=== PATIENT | male | born 1950 | race Caucasian/White ===

== ENCOUNTER → 2022-04-09 | Outpatient (CLI) | payer MEDICARE ==
[2022-04-09 09:37] LABS: Appearance,Urine Clear (Clear); Bilirubin,Urine Negative (Negative); Blood,Urine Negative (Negative); Color,Urine Yellow; Glucose,Urine (UA) Negative (Negative); Ketones,Urine Negative (Negative); Leukocyte Esterase,Urine Negative (Negative); Nitrite,Urine Negative (Negative); PH, Urine 6.5 (5.0-8.0); Protein,Urine Negative (Negative); Specific Gravity,Urine 1.023 (1.001-1.035); Urobilinogen,Urine <2.0 mg/dL (<2.0)
[2022-04-09 10:39] LABS: INR 1.2 (<1.2); Partial Thromboplastin Time 29.5 sec (22.0-30.0); Prothrombin Time 12.1 sec (9.0-12.0)
== END | disposition home or self-care (01) ==
LOC: LABPAT 08:14
PROVIDERS: ATTEND Orthopaedic Surgery
DX: Z01.812 Encounter for preprocedural laboratory examination (principal)
CPT/HCPCS: 80053; 81003; 85025; 85610; 85730; 87070; 93005

== ENCOUNTER → 2022-04-17 | Outpatient (CLI) | payer MEDICARE ==
[2022-04-17 19:09] LABS: HCT 41.6 % (39.6-50.0); HGB 13.7 g/dL (13.0-17.0); MCHC 32.9 g/dL (32.0-37.0); MCV 94.1 fL (80.0-97.0); Mean Platelet Volume 11.1 fL (9.5-12.2); NRBC Per 100 WBC 0 /100 WBCS (0.0-0.0); Platelet Count 167 X 10*3/uL (140-440); RBC 4.42 X 10*6/uL (4.40-5.60); RDW 12.8 % (11.5-14.5); WBC 7.59 X 10*3/uL (4.50-10.00)
[2022-04-17 19:50] LABS: African American GFR (CKD) 86.5 (60.0-200.0); Albumin 4.9 g/dL (3.8-4.9); Albumin/Globulin Ratio 1.75 (1.60-3.17); Anion Gap 12.2 mmol/L (10.00-18.00); BUN/Creat Ratio 25.78 Ratio (12.00-20.00); Blood Urea Nitrogen 26.3 mg/dL (9.0-27.0); Calcium 9.9 mg/dL (8.7-10.3); Carbon Dioxide 24.1 mmol/L (20.0-27.5); Globulin 2.8 g/dL (1.6-3.3); Non-African American GFR(CKD) 74.6 (60.0-200.0); Potassium 4.6 mmol/L (3.5-5.5); Total Bilirubin 0.7 mg/dL (0.30-1.20); Total Protein 7.6 g/dL (6.2-8.2)
== END | disposition home or self-care (01) ==
LOC: LABWHC1 12:02
PROVIDERS: ATTEND Orthopaedic Surgery
DX: Z01.812 Encounter for preprocedural laboratory examination (principal)
CPT/HCPCS: 36415; 80053; 85027

== ENCOUNTER 2022-04-22 06:08 | Day surgery (SDC) | payer MEDICARE ==
[~2022-04-22 06:08] MED LIST: ACETAMINOPHEN TAB 500 MG TAB PO PRN; DEXAMETHASONE SOD PHOSPHATE 10 MG/ML 1 ML VIAL IV PRN; DOCUSATE 100 MG CAP PO PRN; FAMOTIDINE 20 MG/2 ML VIAL IVP PRN; KETOROLAC 15 MG/ML 1 ML VIAL IVP PRN; ONDANSETRON 4 MG/2 ML VIAL IVP PRN; ROPIVACAINE/EPI/CLONIDINE/KET 50 ML SYRINGE MISCELLANE PRN; TRANEXAMIC ACID IN NACL,ISO-OS 1,000 MG in SALINE 1 100ML.BAG IVPB PRN; oxyCODONE ER 10 MG TAB.ER.12H PO PRN
[2022-04-22] MEDS ORDERED: MIDAZOLAM 2 MG/2 ML VIAL IV PRN (06:38)
[2022-04-22] MEDS ORDERED: LIDOCAINE 1% (10MG/ML) FOR IV START INTRADERMA PRN (06:38)
[2022-04-22] MEDS ORDERED: DEXAMETHASONE SOD PHOSPHATE 4 MG/ML 1 ML VIAL IV ONE (06:38)
[2022-04-22] MEDS ORDERED: ONDANSETRON 4 MG/2 ML VIAL IVP ONE (06:38)
[2022-04-22] MEDS ORDERED: fentaNYL (PF) 50 MCG/ML 2 ML AMP IVP PRN (07:00)
[2022-04-22] MEDS ORDERED: HYDROmorphone 0.5 MG/0.5 ML SYRINGE IVP PRN ×4 (07:00→11:04)
[2022-04-22] MEDS: LACTATED RINGERS 1,000 ML IV SCH ×3 (07:04→16:06)
[2022-04-22 07:07] LABS: Glucose,Whole Blood 132 mg/dL (70-110)
[2022-04-22] MEDS ORDERED: fentaNYL (PF) 50 MCG/1 ML VIAL IVP ONE (07:39)
[2022-04-22] MEDS ORDERED: MIDAZOLAM 2 MG/2 ML VIAL IVP ONE (07:39)
[2022-04-22] MEDS ORDERED: PHENYLEPHRINE-0.9% NACL SYG 1,000 MCG/10 ML SYRINGE ONE (07:55)
[2022-04-22] MEDS ORDERED: GLYCOPYRROLATE 0.2 MG/ML 2 ML VIAL ONE (07:55)
[2022-04-22] MEDS ORDERED: SUCCINYLCHOLINE CHLORIDE 200 MG/10 ML VIAL IV ONE (07:55)
[2022-04-22] MEDS ORDERED: SODIUM CHLORIDE 0.9% (PF) 10 ML VIAL ONE (07:55)
[2022-04-22] MEDS ORDERED: LIDOCAINE 2% INJ 20 MG/ML (2 ML VIAL) ONE (07:55)
[2022-04-22] MEDS ORDERED: fentaNYL (PF) 50 MCG/ML 2 ML AMP ONE (07:55)
[2022-04-22] MEDS ORDERED: PROPOFOL 10 MG/ML 20 ML VIAL IV ONE (07:55)
[2022-04-22] MEDS ORDERED: ROCURONIUM 10 MG/ML (5 ML VIAL) IV ONE (07:55)
[2022-04-22] MEDS ORDERED: TRANEXAMIC ACID IN NACL,ISO-OS 1,000 MG/100 ML BAG ONE (07:55)
[2022-04-22] MEDS ORDERED: MIDAZOLAM 2 MG/2 ML VIAL ONE (07:55)
[2022-04-22] MEDS ORDERED: NEOSTIGMINE 1 MG/ML 10 ML VIAL ONE (07:55)
[2022-04-22] MEDS ORDERED: ROPIVACAINE 5 MG/ML 30 ML VIAL ONE (07:55)
[2022-04-22] MEDS ORDERED: LACTATED RINGERS 1,000 ML IV ONE (10:25)
[2022-04-22] MEDS ORDERED: ONDANSETRON 4 MG/2 ML VIAL IVP PRN (11:04)
[2022-04-22] MEDS ORDERED: hydrOXYzine pamoate 25 MG CAP PO PRN (11:04)
[2022-04-22] MEDS ORDERED: HYDROcodone/APAP 5-325MG 1 EACH TAB PO PRN (11:04)
[2022-04-22] MEDS ORDERED: NALOXONE 0.4 MG/ML 1 ML VIAL IV PRN (11:04)
--- NOTE | 2022-04-22 11:12 | XR ---
Fluoroscopy INDICATION: Pain FINDINGS: Fluoroscopy time: 54 seconds. Images obtained: 8. IMPRESSIONS: 1. Documentation of fluoroscopy.
--- NOTE | 2022-04-22 11:13 | FL ---
Fluoroscopy INDICATION: Pain FINDINGS: Fluoroscopy time: 54 seconds. Images obtained: 0. IMPRESSIONS: 1. Documentation of fluoroscopy.
[2022-04-22] MEDS ORDERED: RIVAROXABAN 20 MG TAB PO STA (11:19)
--- NOTE | 2022-04-22 11:23 | P.OP ---
Date of Procedure: 04/22/22 Preoperative Diagnosis: 1. Severe right hip osteoarthritis 2. Atrial fibrillation on Eliquis 3. Type 2 diabetes Postoperative Diagnosis: Same Procedure(s) Performed: Right direct anterior total hip arthroplasty Implants: 1. [place] Trident II Acetabular Cup, Size #58 2. [place] Accolade C Size # 5 Femoral Stem, High Offset 3. Biolox delta femoral head, 36 mm, +5 mm neck Anesthesia: LILIA, regional Surgeon: Rashid Valdez Securities Settlement Processor #1: Sabrina Garcia Estimated Blood Loss (ml): 150 IV fluids (ml): 1,200 Pathology: none sent Condition: stable Disposition: PACU Indications for Procedure: I had a long discussion with the patient in the office on the potential risks and complications of an elective total hip replacement through a direct anterior approach. Risks discussed include, but are certainly not limited to, risks from anesthesia, superficial infection requiring local wound care or antibiotics, deep saul-prosthetic joint infection and the treatment required to eradicate infection, intraoperative fracture, postoperative periprosthetic fracture, damage to local blood vessels or nerves particularly the lateral femoral cutaneous nerve, delayed wound healing requiring local wound care or possibly surgical debridement, hip dislocation, leg length discrepancy, soft tissue irritation around the total hip implant such as iliopsoas tendinitis or trochanteric bursitis, wear and osteolysis from the implants, squeaking or audible noises, groin pain, thigh pain, heterotopic ossification, stiffness, aseptic loosening of the implants, dissatisfaction with surgical outcome, need for revision surgery, DVT, PE, swelling of the operative extremity, acute coronary event, stroke, failure to thrive, and possibly loss of life or limb. The patient understands that while these are the most common complications after an elective hip replacement there are certainly other less common complications possible. They were given ample time to ask questions regarding the potential complications of a hip replacement. Following our discussion the patient provided their verbal and written consent to go forward with an elective total hip replacement. Operative Findings: The patient had relatively poor bone quality and the proximal femur. I initially attempted using a cementless broach system for a cementless stem but due to the patient's relatively poor bone quality I could not achieve stability so elected to use a cemented femoral stem Description of Procedure: The patient was identified in the preoperative holding area and the correct hip was marked with my initials. I reviewed the procedure and consent with the patient. All of their questions were answered. The patient was then brought back into the operating room by anesthesia. While on the [facility] anesthesia was administered by the anesthesia team. Preoperative antibiotics and tranexamic acid were also given. After the patient was under anesthesia I examined their ankles to determine their preoperative leg length discrepancy. The skin over the anterior aspect of the hip was shaved to remove hair over the site of planned incision. Both feet and ankles were padded with webril and boots for the [place] were applied. The patient was then carefully transferred onto the [place] table. A perineal post was immediately placed. The arms were placed on arm holders and were well-padded. Both boots were secured to the spars on the [place] table. The patient was positioned so that the pelvis was centered over the post. Nonsterile drapes were applied. A timeout was performed identifying the correct patient, operative extremity, and procedure. At this point fluoroscopy was brought in to take preoperative images of the pelvis and operative hip. Using the standing AP pelvis from the office as a template, a comparable image was obtained with fluoroscopy. A metallic bar was used to create a bi-ischial line for use as a reference to leg length adjustments during the procedure. Global offset was also measured on both the operative and nonoperative leg. Fluoroscopy was then brought out and a pre-scrub using a chlorhexidine scrub brush was performed. The operative limb was then prepped and draped in the standard sterile fashion. An anterior longitudinal incision was made lateral and distal to the ASIS. The skin and subcutaneous tissues were incised sharply. The underlying tensor fascia was identified and incised in its midportion. The fascia was dissected free from the underlying muscle and the muscle belly was retracted. A blunt tipped cobra retractor was placed over the superior neck under the muscle fibers of the gluteus minimus. The deep enveloping fascia of the tensor was incised. The anterior leash of vessels were then identified and cauterized. The fascia between the rectus and the capsule was then incised and the pre-capsular fat was excised. A second Cobra was placed inferior to the neck. The interval between the rectus and iliocapsularis and the hip capsule was developed and a retractor was placed carefully over the anterior rim of the acetabulum. A T-shaped anterior capsulotomy was performed. The superior capsular leaflet was left in place in the inferior capsular flap was excised. The Cobra retractors were placed intracapsularly. We then made a femoral neck osteotomy according to preoperative and intraoperative templating and confirmed the level of the osteotomy using fluoroscopic imaging. The femoral head was removed, passed off to the back table, and sized. The superior capsular flap was excised. Retrac tors were placed circumferentially exposing the acetabulum. We then circumferentially debrided the acetabulum free of labrum and osteophytes. The pulvinar was removed to fully visualize the cotyloid fossa. We then sequentially reamed to achieve peripheral fit and excellent bleeding subchondral bone. The socket was thoroughly irrigated. The acetabular component was impacted into the appropriate position using fluoroscopy to guide version, inclination, and depth of insertion taking care to have a comparable image of the AP pelvis to the standing image taken in the office. An excellent press-fit was achieved and final position was confirmed using fluoroscopy. The press fit was augmented with bony cancellus dome screws. The liner was then impacted into the socket. Attention was then turned to the femur. The remnant dorsal lateral capsule was excised. The short external rotators were visible and protected. A bone hook was used to confirm appropriate translation of the trochanter away from the acetabulum. The leg was then extended and adducted and the bone hook was used to elevate the femur for broaching. A box osteotome and blunt tipped canal sound was then utilized to gain access to the femoral canal. I initially attempted to use a cementless broach system. When I reached an appropriate size stem there was not enough torsional stability to allow trialing. Due to the amount of movement of the broach and relatively poor bone quality I elected to transition to a cemented femoral stem. We then sequentially broached the femur in appropriate anteversion until torsional stability was achieved and the implant was felt to have reached the appropriate size to allow trialing. The neck cut was brought flush to the trial broach with a calcar planar. A trial neck and head were then placed onto the broach and the hip was atraumatically reduced under direct visualization. External rotation to 90 was performed to assess stability. Fluoroscopy was brought in. An AP and lateral fluoroscopic image of the proximal femur was obtained to assess position and fill of the trial broach. An AP of the pelvis was then obtained and matched to the preoperative image taken. A bi-ischial bar was then placed and measurements were taken to assess changes in length and offset. The hip was then carefully dislocated, the proximal femur was exposed, and the trial implants were removed. The proximal femur was then prepared for cementing. The canal was thoroughly irrigated with pulsatile lavage to remove blood and marrow contents. A cement restrictor was placed to a depth just distal to the tip of the final implant. Epinephrine-soaked gauze was then packed into the proximal femur. 2 bags of cement were then mixed using a centrifuge and placed into a cement gun. A nesthesia was notified that cementing was about to commence to make sure the patient was appropriately ventilated and hydrated. Once the cement had reached appropriate consistency, the cement gun was used to fill the canal in a retrograde fashion starting at the restrictor. Cement was then pressurized into the canal with a blue tipped defence force member other ranks. The stem was then carefully introduced into the cement taking care to guide the implant into appropriate version. The stem was held in position until the cement had fully set. All extra cement was removed while the cement was hardening. The trunnion was cleansed and the final head was tapped into place to engage the Baron taper. The acetabulum was irrigated and visualized to be free of debris. The hip was carefully reduced. Stability was checked clinically with external rotation to 90 and there was no evidence of instability. Final fluoroscopic images were taken. The wound was then thoroughly irrigated and soaked with a dilute Bet adine rinse for 3 minutes. 3 L of sterile saline was irrigated through the wound using pulsatile lavage. Local anesthetic cocktail was injected into the soft tissues around the surgical field. A deep drain was placed. The wound was then closed in layers. A sterile dressing was placed over the surgical incision and drain site. The drapes were taken down and the patient was carefully transferred off of the [place] table. Following removal of the boots the leg lengths felt acceptable. The patient was then taken to recovery room having tolerated the procedure well. Sabrina Garcia PA-C was required as a skilled medical assistant supervisor for patient positioning, surgical exposure, retraction, placement of implants, and closure of the surgical wound. PLAN: The patient can weight-bear as tolerated on the operative extremity. 2 doses of postoperative antibiotics. Resume Eliquis for DVT prophylaxis. Physical therapy for gait training. Discontinue drain postoperative day #1 if output is less than 100 mL per shift.
[2022-04-22 12:21] LABS: Glucose,Whole Blood 182 mg/dL (70-110)
[2022-04-22] MEDS: HYDROcodone/APAP 5-325MG 1 EACH TAB PO PRN ×2 (12:56→19:02)
--- NOTE | 2022-04-22 14:23 | P.ANPRN ---
Procedure Note - Anesthesia - Nerve Block Performed Right Jordin Time Out Performed: Yes (07:38) Date of Procedure: 04/22/22 Procedure Start Time: :38 Procedure Stop Time: :45 Location of Patient: PreOp Indication: Acute Post-Operative Pain, Requested by Surgeon (Dr Valdez) Sedation Type: Sedate with meaningful contact maintained Preparation: Sterile Prep Position: Supine Catheter: None Needle Types: Pajunk Needle Gauge: 21 Ultrasound used to visualize needle placement: Yes Ultrasound used to observe medication spread: Yes Injectate: 0.5% Ropivacaine (see comment for volume) (20cc +5cc PF Normal saline) Blood Aspirated: No Pain Paresthesia on Injection Noted: No Resistance on Injection: Normal Image Stored and Saved: Yes Events: Uneventful and Well Tolerated
[2022-04-22 16:54] LABS: Glucose,Whole Blood 279 mg/dL (70-110)
--- NOTE | 2022-04-22 17:28 | P.CONS ---
History of Present Illness - Reason for Consult Consult date: 04/22/22 - History of Present Illness Patient is a 71-year-old male with PMH of atrial fibrillation, hypertension, dyslipidemia, diabetes mellitus that presents to [facility] for elective surgery. He underwent right direct anterior total hip arthroplasty with orthopedic surgery. [facility] is being consulted for medical management of this patient. Patient was seen and examined after his surgery. He reports well-controlled pain in his right hip. Has not urinated. Has not had a bowel movement. He denies any headache, lower extremity edema, nausea vomiting, fever or chills, c ough, chest pain, shortness breath, palpitations, changes in urination or bowel habits. No changes in appetite or weight. He denies any dizziness, numbness/weakness/tingling of the extremities. Pertinent positives and negatives as discussed in HPI, a complete review of systems was performed and all other systems are negative. General: non toxic, no distress, appears at stated age Derm: warm, dry Head: atraumatic, normocephalic, symmetric Eyes: EOMI, no lid lag, anicteric sclera Mouth: no lip lesion, mucus membranes moist Cardiovascular: Irregularly irregular, no murmur, positive posterior tibial pulse bilateral, Lungs: CTA bilateral, no rhonchi, no rales , no accessory muscle use Abdominal: soft, nontender to palpation, no guarding, no appreciable organomegaly Ext: no gross muscle atrophy, no edema, no contractures Neuro: no focal neuro deficits Psych: Alert, oriented, appropriate affect #Diabetes mellitus with hyperglycemia Likely reactive from surgery. Also received Decadron. Low-dose sliding scale. Accu-Cheks before meals at bedtime. Hyperglycemic precautions. #Atrial fibrillation on Xarelto Restart atenolol and Xarelto. Rate controlled. #Hypertension BP 118/78. Restart lisinopril and hydrochlorothiazide. #Dyslipidemia Restart Lipitor. Patient names his decision maker if he can't make decisions for himself. Patient would like to be full code. Past Medical History Past Medical History: Atrial Fibrillation, Diabetes Mellitus, Hyperlipidemia, Hypertension, Osteoarthritis (OA), Sleep Apnea/CPAP/BIPAP Additional Past Medical History / Comment(s): recent stress test, declines cpap. History of Any Multi-Drug Resistant Organisms: None Reported Past Surgical History: Orthopedic Surgery Additional Past Surgical History / Comment(s): left knee arthroscopy, cardioversion, Right anterior hip replacement (04/22/22) Past Anesthesia/Blood Transfusion Reactions: No Reported Reaction Past Psychological History: No Psychological Hx Reported Smoking Status: Never smoker Past Alcohol Use History: Occasional Past Drug Use History: None Reported - Past Family History Mother Family Medical History: No Reported History Medications and Allergies Home Medications Medication Instructions Recorded Confirmed Type Atorvastatin [Lipitor] 20 mg PO HS 04/15/22 04/22/22 History Lisinopril-Hctz 20-25 mg 1 tab PO DAILY 04/15/22 04/22/22 History [Zestoretic 20-25] Rivaroxaban [Xarelto] 20 mg PO HS 04/15/22 04/22/22 History atenoloL [Tenormin] 50 mg PO DAILY 04/15/22 04/22/22 History metFORMIN HCL [Glucophage] 500 mg PO HS 04/15/22 04/22/22 History Allergies Allergy/AdvReac Type Severity Reaction Status Date / Time No Known Allergies Allergy Verified 04/22/22 06:52 Physical Exam Vitals: Vital Signs Temp Pulse Pulse Resp BP BP Pulse Ox 04/22/22 16:34 95 04/22/22 15:21 97.3 F L 75 18 118/78 96 04/22/22 13:30 67 98/63 96 04/22/22 13:15 70 105/67 94 L 04/22/22 13:01 68 107/71 04/22/22 12:45 66 111/66 99 04/22/22 12:31 74 117/74 99 04/22/22 12:20 97.8 F 65 15 114/71 98 04/22/22 11:45 56 L 16 126/59 97 04/22/22 11:30 55 L 16 126/55 98 04/22/22 11:15 63 16 119/59 100 04/22/22 11:00 97.3 F L 71 12 99/69 100 04/22/22 07:56 67 16 126/74 100 04/22/22 06:51 96.7 F L 57 L 18 169/91 99 Intake and Output 04/22/22 04/22/22 04/22/22 06:59 14:59 22:59 Intake Total 1450 Output Total 150 Balance 1300 Intake: IV 1450 Output: Estimated Blood Loss 150 Other: Weight 93.1 kg 93.1 kg Results Labs: Abnormal Lab Results - Last 24 Hours (Table) 04/22/22 04/22/22 04/22/22 Range/Units 07:01 12:20 16:53 POC Glucose (mg/dL) 132 H 182 H 279 H (70-110) mg/dL
[2022-04-22] MEDS: atenoloL 50 MG TAB PO SCH (17:42)
[2022-04-22] MEDS: LISINOPRIL-HCTZ 20-25 MG 1 EACH TAB PO SCH (17:42)
[2022-04-22] MEDS: INSULIN ASPART (NovoLOG) 100 UNIT/ML VIAL SQ SCH ×2 (17:42→21:29)
[2022-04-22] MEDS ORDERED: metFORMIN 500 MG TAB PO SCH (21:00)
[2022-04-22] MEDS ORDERED: SENNOSIDES-DOCUSATE SODIUM 1 EACH TAB PO SCH (21:00)
[2022-04-22] MEDS ORDERED: ATORVASTATIN 20 MG TAB PO SCH (21:00)
[2022-04-22 21:08] LABS: Glucose,Whole Blood 291 mg/dL (70-110)
[2022-04-23] MEDS: LACTATED RINGERS 1,000 ML IV SCH ×2 (01:00→08:30)
[2022-04-23] MEDS: HYDROcodone/APAP 5-325MG 1 EACH TAB PO PRN (01:05)
[2022-04-23 02:27] VITALS: RESP 16
[2022-04-23 06:32] LABS: Glucose,Whole Blood 211 mg/dL (70-110)
[2022-04-23] MEDS: INSULIN ASPART (NovoLOG) 100 UNIT/ML VIAL SQ SCH (06:47)
[2022-04-23 07:53] VITALS: BP 99/58; PULSE 91; TEMP 97.6
--- NOTE | 2022-04-23 08:35 | P.DS ---
Providers Expected date of discharge: 04/23/22 Attending physician: Rashid Valdez Consults: 04/22/22 11:04 Consult Physician Routine Consulting Provider: Gurjit Weber Consult Reason/Comments: medical management Do you want consulting provider notified?: Yes Primary care physician: Justin Sorenson MD Hospital Course: This is a 71-year-old male who was last seen in our office with complaint of continued right hip pain. The patient has a known history of degenerative arthritis of the right hip and presents to discuss surgical options. After discussion and consideration the patient elects to proceed with a direct anterior total right hip arthroplasty. He is seen preoperatively by his PCP Dr. Sorenson, and rasper machine operator Dr. Paniagua and cleared for surgery. The patient is admitted to [facility] for total right hip arthroplasty. The procedure is performed without complication or sequelae. The patient is doing well postoperatively. Vital signs and postoperative labs are stable. Patient is seen and examined bedside this morning with Dr. Valdez. He states the pain in his right hip is well controlled at this time. He is ambulating with a walker with minimal assistance. Patient has no complaints or concerns. On examination, patient is sitting up in bed in no apparent distress. He is alert and oriented 3. On inspection of the right hip, there is a clean, dry, intact operative dressing in place with no bleeding or drainage through the dressing. There is mild swelling of the thigh, the thigh soft and compressible. Motor and sensory function is intact of the right lower extremity. Femoral nerve function is intact. Right lower extremity warm and well perfused with brisk capillary refill distally. Calf is soft and nontender to palpation. Hemovac drain pulled and patient tolerated this well. The patient is discharged to home with home health services today in good condition, pending medical clearance. Please see discharge orders. Please refer to the [facility] rec for accurate list of medications. He should follow-up in the office in two weeks. Plan - Discharge Summary Discharge Rx Participant: No New Discharge Prescriptions: New Docusate [Colace] 100 mg PO BID #60 capsule Omeprazole 40 mg PO DAILY 30 Days #30 cap HYDROcodone/APAP 5-325MG [[place] 5-325] 1 - 2 tab PO Q6HR PRN 7 Days #32 tab PRN Reason: Pain No Action atenoloL [Tenormin] 50 mg PO DAILY Rivaroxaban [Xarelto] 20 mg PO HS metFORMIN HCL [Glucophage] 500 mg PO HS Atorvastatin [Lipitor] 20 mg PO HS Lisinopril-Hctz 20-25 mg [Zestoretic 20-25] 1 tab PO DAILY Discharge Medication List Atorvastatin [Lipitor] 20 mg PO HS 04/15/22 [History] Lisinopril-Hctz 20-25 mg [Zestoretic 20-25] 1 tab PO DAILY 04/15/22 [History] Rivaroxaban [Xarelto] 20 mg PO HS 04/15/22 [History] atenoloL [Tenormin] 50 mg PO DAILY 04/15/22 [History] metFORMIN HCL [Glucophage] 500 mg PO HS 04/15/22 [History] Docusate [Colace] 100 mg PO BID #60 capsule 04/23/22 [Rx] HYDROcodone/APAP 5-325MG [[place] 5-325] 1 - 2 tab PO Q6HR PRN 7 Days #32 tab 04/23/22 [Rx] Omeprazole 40 mg PO DAILY 30 Days #30 cap 04/23/22 [Rx] Follow up Appointment(s)/Referral(s): Rashid Valdez MD [Medical Doctor] - 2 Weeks Activity/Diet/Wound Care/Special Instructions: Weight bear to tolerance on operative extremity with a walker. Keep operative dressing in place until follow-up in the office. Call the office if dressing becomes saturated or falls off. May shower over dressing. Take pain medications as prescribed. Resume Xarelto for blood clot prevention. Follow-up in the office in two weeks at [facility]. Call the office with any questions or concerns, Discharge Disposition: HOME WITH HOME HEALTH SERVICES
[2022-04-23] MEDS: atenoloL 50 MG TAB PO SCH (08:44)
[2022-04-23] MEDS: LISINOPRIL-HCTZ 20-25 MG 1 EACH TAB PO SCH (08:44)
[2022-04-23 09:51] LABS: HCT 26.2 % (39.6-50.0); HGB 9.4 g/dL (13.0-17.0); MCH 32.6 pg (27.0-32.0); MCHC 35.9 g/dL (32.0-37.0); Mean Platelet Volume 11.1 fL (9.5-12.2); NRBC Per 100 WBC 0 /100 WBCS (0.0-0.0); Platelet Count 128 X 10*3/uL (140-440); RBC 2.88 X 10*6/uL (4.40-5.60); WBC 14.42 X 10*3/uL (4.50-10.00)
[2022-04-23 11:05] LABS: Glucose,Whole Blood 178 mg/dL (70-110)
[2022-04-23 11:32] LABS: Basophils # (M) 0 X 10*3/uL (0.00-0.10); Eosinophils # (M) 0 X 10*3/uL (0.04-0.35); Lymphocytes # (M) 0.14 X 10*3/uL (0.90-5.00); Monocytes # (M) 1.01 X 10*3/uL (0.20-1.00); Neutrophils # (M) 13.27 X 10*3/uL (2.00-8.90); Neutrophils % (M) 92 %; RBC Morphology NORMAL
[2022-04-23] MEDS ORDERED: RIVAROXABAN 20 MG TAB PO SCH (21:00)
== END 2022-04-23 13:05 | disposition home health service (06) ==
LOC: OR 06:08 → 4SSUR 11:00 → OR 04-23 13:05
PROVIDERS: ATTEND Orthopaedic Surgery
DX: M16.11 Unilateral primary osteoarthritis, right hip (principal); I48.91 Unspecified atrial fibrillation; E11.9 Type 2 diabetes mellitus without complications; G89.18 Other acute postprocedural pain; I10 Essential (primary) hypertension; E78.5 Hyperlipidemia, unspecified; Z82.49 Family history of ischemic heart disease and other diseases of the circulatory system; Z79.01 Long term (current) use of anticoagulants; Z86.59 Personal history of other mental and behavioral disorders
CPT/HCPCS: 27130; 94760; 97161; 64447; 76942; 86900; 86901; 85025; 86850; 73501; C1776; J2250; J0330; J1100; J2710; J0690 ×2; J2405; J3010 ×2; J2795; J1885; J2370; J2704; J1170; J2001

== ENCOUNTER 2022-09-01 09:41 | Day surgery (SDC) | payer MEDICARE ==
[2022-08-28 10:09] VITALS: BMI 27.8
[~2022-09-01 09:41] MED LIST changes: -ACETAMINOPHEN TAB 500 MG TAB PO PRN; +ALPRAZolam 0.25 MG TAB PO PRN; +ALPRAZolam 0.5 MG TAB PO PRN; +ASPIRIN 325 MG TAB PO STA; +ATORVASTATIN 80 MG TAB PO STA; -DEXAMETHASONE SOD PHOSPHATE 10 MG/ML 1 ML VIAL IV PRN; -DOCUSATE 100 MG CAP PO PRN; -FAMOTIDINE 20 MG/2 ML VIAL IVP PRN; +HEPARIN SODIUM,PORCINE 10,000 UNIT in SODIUM CHLORIDE 0.9% 1,000 ML IRRIGATION PRN; +HEPARIN SODIUM,PORCINE 2,500 UNIT in SODIUM CHLORIDE 0.9% 250 ML IRRIGATION PRN; -KETOROLAC 15 MG/ML 1 ML VIAL IVP PRN; +NITROGLYCERIN SL TABS 0.4 MG TAB SUBLINGUAL PRN; -ONDANSETRON 4 MG/2 ML VIAL IVP PRN; -ROPIVACAINE/EPI/CLONIDINE/KET 50 ML SYRINGE MISCELLANE PRN; +SODIUM CHLORIDE 0.9% 1,000 ML in EMPTY BAG 1 BAG IV SCH; -TRANEXAMIC ACID IN NACL,ISO-OS 1,000 MG in SALINE 1 100ML.BAG IVPB PRN; -oxyCODONE ER 10 MG TAB.ER.12H PO PRN
[2022-09-01] MEDS ORDERED: SODIUM CHLORIDE 0.9% 1,000 ML IV ONE (10:07)
[2022-09-01 10:23] LABS: Glucose,Whole Blood 130 mg/dL (70-110)
[2022-09-01] MEDS ORDERED: LIDOCAINE 1% INJ 10MG/ML (20 ML MDV) ONE (11:01)
[2022-09-01] MEDS ORDERED: HEPARIN SODIUM,PORCINE 10,000 UNIT/ML 1 ML VIAL ONE (12:20)
[2022-09-01] MEDS ORDERED: PROPOFOL 10 MG/ML 20 ML VIAL IV ONE (12:20)
[2022-09-01] MEDS ORDERED: PHENYLEPHRINE-0.9% NACL SYG 1,000 MCG/10 ML SYRINGE ONE (12:20)
[2022-09-01] MEDS ORDERED: fentaNYL (PF) 50 MCG/ML 2 ML AMP ONE (12:20)
[2022-09-01] MEDS ORDERED: ePHEDrine 50 MG/ML 1 ML VIAL ONE (12:20)
[2022-09-01] MEDS ORDERED: SUCCINYLCHOLINE CHLORIDE 200 MG/10 ML VIAL IV ONE (12:20)
[2022-09-01] MEDS ORDERED: MIDAZOLAM 2 MG/2 ML VIAL ONE (12:20)
[2022-09-01] MEDS ORDERED: LIDOCAINE 2% INJ 20 MG/ML (2 ML VIAL) ONE (12:20)
[2022-09-01] MEDS ORDERED: LIDOCAINE 1% INJ 10MG/ML (20 ML MDV) SQ ONE (13:11)
[2022-09-01] MEDS ORDERED: HEPARIN SOD,PORK IN 0.45% NACL 25,000 UNIT in 0.45% NACL 1 250ML.BAG IV ONE (13:14)
[2022-09-01] MEDS ORDERED: IOPAMIDOL-370 100ML BTL INJ ONE (15:04)
[2022-09-01 16:08] LABS: Glucose,Whole Blood 75 mg/dL (70-110)
--- NOTE | 2022-09-01 16:25 | P.EPPROC ---
- EP Procedure Note Electrophysiology Procedure Note: PROCEDURE A. fib ablation, PVI and left atrial roof ablation DIAGNOSIS Persistent Atrial fibrillation, symptomatic, refractory to therapy RESULT No left atrial appendage mass seen on intracardiac echo, normal LV size and function Thickened pericardial stripe, no effusion Successful A. fib ablation/pulmonary vein isolation of all veins using cryo- ablation Linear ablation left atrial roof, successful Complete entrance block in all 4 veins confirmed No evidence for phrenic nerve injury Esophageal deflection YES Electrical cardioversion with a synchronized shock across the chest YES PROCEDURE DETAILS Written informed consent prior to procedure. Patient brought to the EP lab. G eneral anesthesia given. Heparin administered. A city maintained above 300 seconds Both groins prepped and draped per protocol and venous sheaths placed. Esophagus intubated, circa catheter for temperature monitoring an endoscope for possible esophageal deflection. Phrenic nerve monitoring performed. Esophageal temperature monitoring performed. Esophageal deflection performed if circa catheter overlapping with the balloon or circa temperature less than 27.5C Intracardiac echocardiography performed. Pericardium evaluated. Left atrial appendage evaluated. Left atrium evaluated along with pulmonary veins Transseptal catheterization performed under fluoroscopic guidance and intracardiac echo guidance Cryoablation sheath exchanged, balloon catheter along with achieve catheter placed in the left atrium. Pulmonary veins isolated in the following sequence: Left superior pulmonary vein followed by left inferior pulmonary vein, followed by right inferior pulmonary vein and lastly right superior pulmonary vein. Phrenic nerve stimulation along with capture thresholds within the SVC and right superior pulmonary vein to identify the phrenic nerve proximity to the cryo- balloon. Pulmonary veins isolated and confirmed with entrance and exit block. Phrenic nerve integrity confirmed at the end of the procedure Ablation of the left atrial roof performed with sequential lesions from the left superior to the right superior pulmonary veins. Ablation of the electrograms confirmed Electrical cardioversion performed for persistence of atrial fibrillation despite successful ablation. Diagnostic catheters for the high right atrium, His bundle, coronary sinus placed. LA and RA pressures recorded RA pressure: 22/4/30 LA pressure: 30/70 Diagnostic EP study with coronary sinus pacing and recording. Electrical cardioversion was performed to allow for an EP study Baseline measurements: Sinus cycle length normal, OK interval 153, QRS 86 and QT interval 373 ms AH 43, HV 48 AV node Wenckebach block 390 ms Sinus node recovery times at 600, 500 and, 400 ms were 1117, 780 and 1155 Venous sheaths were removed and hemostasis assured with a closure device. Patient extubated and transferred to recovery PROCEDURES PERFORMED Diagnostic EP study CS pacing and recording Left and right transseptal catheterization Catheter the mapping of the tachycardia Intracardiac echocardiography Pulmonary vein isolation with transseptal and comprehensive EPS, [id number] Left atrial roof line, [id number] Electrical cardioversion with a synchronized shock across the chest [id number]
[2022-09-01] MEDS ORDERED: ACETAMINOPHEN TAB 325 MG TAB PO PRN (16:28)
[2022-09-01 17:15] LABS: Glucose,Whole Blood 104 mg/dL (70-110)
[2022-09-01] MEDS ORDERED: ACETAMINOPHEN IV (For NPO) 1,000 MG in EMPTY BAG 1 BAG IVPB ONE (17:30)
--- NOTE | 2022-09-01 18:53 | P.HPCAR ---
History of Present Illness This is Dr. Paniagua dictating an H/P on this patient The patient was interviewed and examined IMPRESSION / ASSESSMENT: Persistent atrial fibrillation, symptomatic, failed previous medical treatment Type 2 diabetes Hypertension Dyslipidemia Obstructive sleep apnea PLAN: Left atrial ablation with pulmonary vein isolation and linear ablation for management of persistent atrial fibrillation Continue anticoagulation HPI Patient remains in atrial fibrillation and symptomatic tightness. Shortness of breath No chest discomfort no loss of consciousness No respiratory symptoms No syncope ROS: No fever chills or rigors, no cough, phlegm or expectoration, no nausea, vomiting or diarrhea, no hematuria, dysuria, no musculoskeletal complaints, no strokes or seizures, no skin lesions. EXAMINATION: 137/86 mmHg pulse rate in the 60s Breath sounds are clear Heart sounds irregular but normal no murmurs or gallops or rub No JVD No lower extremity edema REVIEW OF LABS, ECG & MEDICAL DATA medication list reviewed and includes Xarelto Pravachol metformin atenolol and lisinopril hydrochlorothiazide Glucose 75 and 104 Physical Exam Vitals: Vital Signs Temp Pulse Pulse Resp BP BP Pulse Ox 09/01/22 18:30 72 109/71 99 09/01/22 18:00 68 121/76 99 09/01/22 17:45 67 129/80 99 09/01/22 17:30 67 125/82 98 09/01/22 17:15 67 137/86 100 09/01/22 17:00 97.5 F L 68 16 140/85 97 09/01/22 16:24 67 16 150/85 98 09/01/22 16:08 67 15 166/88 98 09/01/22 15:50 69 16 134/82 96 09/01/22 15:34 97.1 F L 68 16 141/75 100 09/01/22 10:12 97.7 F 70 16 126/77 99 Intake and Output 09/01/22 09/01/22 09/01/22 06:59 14:59 22:59 Intake Total 820 340 Balance 820 340 Intake: IV 820 100 Oral 240 Other: Weight 90.6 kg Past Medical History Past Medical History: Atrial Fibrillation, Diabetes Mellitus, Hyperlipidemia, Hypertension, Osteoarthritis (OA), Sleep Apnea/CPAP/BIPAP Additional Past Medical History / Comment(s): pt states sleep apnea since wt loss History of Any Multi-Drug Resistant Organisms: None Reported Past Surgical History: Orthopedic Surgery Additional Past Surgical History / Comment(s): left knee arthroscopy, cardioversion, Right anterior hip replacement (04/22/22) Past Anesthesia/Blood Transfusion Reactions: No Reported Reaction Smoking Status: Never smoker - Past Family History Mother Family Medical History: No Reported History Son(s) Family Medical History: Cancer Additional Family Medical History / Comment(s): blood Physical Examination Vital Signs Temp Pulse Pulse Resp BP BP Pulse Ox 09/01/22 18:30 72 109/71 99 09/01/22 18:00 68 121/76 99 09/01/22 17:45 67 129/80 99 09/01/22 17:30 67 125/82 98 09/01/22 17:15 67 137/86 100 09/01/22 17:00 97.5 F L 68 16 140/85 97 09/01/22 16:24 67 16 150/85 98 09/01/22 16:08 67 15 166/88 98 09/01/22 15:50 69 16 134/82 96 09/01/22 15:34 97.1 F L 68 16 141/75 100 09/01/22 10:12 97.7 F 70 16 126/77 99 Intake and Output 09/01/22 09/01/22 09/01/22 06:59 14:59 22:59 Intake Total 820 340 Balance 820 340 Intake: IV 820 100 Oral 240 Other: Weight 90.6 kg Results Current Medications Generic Name Dose Route Start Last Admin Trade Name Freq PRN Reason Stop Dose Admin Acetaminophen 650 mg 09/01/22 16:28 Acetaminophen Tab 325 Mg Tab PO Q6HR PRN Mild Pain (Scale 1 to 3) Alprazolam 0.5 mg 09/01/22 06:14 Alprazolam 0.5 Mg Tab PO 10/01/22 06:15 Q6HR PRN Moderate Anxiety Lisinopril/HCTZ 1 each 09/02/22 09:00 Lisinopril-Hctz 20-25 Mg 1 Each Tab PO DAILY PARESH Metformin HCl 250 mg 09/03/22 21:00 Metformin 500 Mg Tab PO BID PARESH Pravastatin Sodium 20 mg 09/01/22 21:00 Pravastatin Sodium 20 Mg Tab PO HS PARESH Rivaroxaban 20 mg 09/01/22 21:00 Rivaroxaban 20 Mg Tab PO HS PARESH Protocol Sodium Chloride 12 ml 09/01/22 16:28 Sodium Chloride 0.9% Flush 10 Ml Syringe IV Q12HR PRN Line Flush Intake and Output 09/01/22 09/01/22 09/01/22 06:59 14:59 22:59 Intake Total 820 340 Balance 820 340 Intake: IV 820 100 Oral 240 Other: Weight 90.6 kg Patient Weight 09/02/22 06:59 Weight 90.6 kg
[2022-09-01 20:01] LABS: Glucose,Whole Blood 145 mg/dL (70-110)
[2022-09-01] MEDS ORDERED: RIVAROXABAN 20 MG TAB PO SCH (21:00)
[2022-09-01] MEDS ORDERED: PRAVASTATIN SODIUM 20 MG TAB PO SCH (21:00)
[2022-09-02 03:18] VITALS: RESP 16
--- NOTE | 2022-09-02 06:46 | P.DS ---
Providers Attending physician: Macario Paniagua Primary care physician: Justin Sorenson MD Hospital Course: Patient has sore throat and upper chest discomfort especially with swallowing and taking a deep breath Heart sounds are normal and regular no rub no gallop Lungs are clear no rhonchi no crackles No dizziness no lightheadedness He is been ambulating around the room Examination blood pressures 102/68 mmHg No JVD Abdomen soft Extremities warm Groins healed well Impression Persistent symptomatic atrial fibrillation Status post isolation of all pulmonary veins and ablation of the left atrial roof successfully Plan continue anticoagulation continue current medications Discharge home by the p.m. today if hemodynamically stable Follow-up Dr. Paniagua in 1-2 weeks Plan - Discharge Summary Discharge Rx Participant: No New Discharge Prescriptions: Continue atenoloL [Tenormin] 50 mg PO DAILY Rivaroxaban [Xarelto] 20 mg PO HS Pravastatin Sodium [Pravachol] 20 mg PO HS Lisinopril-Hctz 20-25 mg [Zestoretic 20-25] 1 tab PO DAILY metFORMIN HCL ER [Glucophage XR] 500 mg PO HS Discharge Medication List Lisinopril-Hctz 20-25 mg [Zestoretic 20-25] 1 tab PO DAILY 04/15/22 [History] Rivaroxaban [Xarelto] 20 mg PO HS 04/15/22 [History] atenoloL [Tenormin] 50 mg PO DAILY 04/15/22 [History] Pravastatin Sodium [Pravachol] 20 mg PO HS 06/08/22 [History] metFORMIN HCL ER [Glucophage XR] 500 mg PO HS 06/08/22 [History] Follow up Appointment(s)/Referral(s): Macario Paniagua MD [STAFF PHYSICIAN] - 1 Week Activity/Diet/Wound Care/Special Instructions: Post EP study - Ablation instructions 1. Keep access sites dry for 2 days. 2. No heavy lifting or straining for 2 days. 3. Avoid bending the hips repeatedly for 2 days. 4. You may go up and down stairs slowly Call if the following is noted 1. Bleeding, increasing swelling or pain at the access sites. 2. Increasing chest discomfort, especially upon taking a deep breath. 3. Increasing shortness of breath, at rest or with exertion. 4. Undue cough / phlegm 5. Difficulty or pain while swallowing. 6. Pain or change in color in the extremities. 7. Fever, chills, rigors. 8. Increasing headache or neurologic symptoms. 9. Dizziness, fainting, palpitations
[2022-09-02 07:45] VITALS: TEMP 98.2
[2022-09-02] MEDS ORDERED: LISINOPRIL-HCTZ 20-25 MG 1 EACH TAB PO SCH (09:00)
[2022-09-02] MEDS ORDERED: SODIUM CHLORIDE 0.9% 500 ML 500 ML IV ONE (11:17)
[2022-09-02 11:47] LABS: Glucose,Whole Blood 187 mg/dL (70-110)
[2022-09-02 15:32] VITALS: BP 126/72; PULSE 78
[2022-09-03] MEDS ORDERED: metFORMIN 500 MG TAB PO SCH (21:00)
== END 2022-09-02 15:32 | disposition home or self-care (01) ==
LOC: CATHEP 09:41 → 6NMEDSUR 15:13 → CATHEP 09-02 15:32
PROVIDERS: ATTEND Internal Medicine Clinical Cardiac Electrophysiology
DX: I48.19 Other persistent atrial fibrillation (principal); I44.1 Atrioventricular block, second degree; E11.9 Type 2 diabetes mellitus without complications; I10 Essential (primary) hypertension; E78.5 Hyperlipidemia, unspecified; G47.33 Obstructive sleep apnea (adult) (pediatric); M19.90 Unspecified osteoarthritis, unspecified site; Z79.01 Long term (current) use of anticoagulants; Z98.890 Other specified postprocedural states; Z79.84 Long term (current) use of oral hypoglycemic drugs; Z79.899 Other long term (current) drug therapy
CPT/HCPCS: 93656; 93657; 86900; 86901; 86850; C1894 ×2; C1769 ×3; C1760; C1730 ×2; C1759; C1893; C1733; C1766; J2001; J0131; Q9967; J1644